=== PATIENT | female | born 1990 | race African-American/Black ===

== ENCOUNTER 2017-06-02 14:40 | Outpatient (CLI) | payer BC ==
--- NOTE | 2017-06-02 15:32 | RAD ---
LUMBAR SPINE FOUR VIEWS INCLUDING FLEXION AND EXTENSION: 06/02/17 HISTORY: Low back pain. FINDINGS/IMPRESSION: No fracture, subluxation or bony destruction seen. No change in alignment is seen on flexion or exten lissy. POS: [facility]
== END 2017-06-02 14:41 | disposition home or self-care (01) ==
LOC: SCSRAD 14:40
PROVIDERS: ATTEND Psychiatry & Neurology Neurology
DX: G43.019 Migraine without aura, intractable, without status migrainosus (principal)
CPT/HCPCS: 72120

== ENCOUNTER 2019-03-14 17:29 | Emergency (ER) | payer BC ==
[~2019-03-14 17:29] MED LIST: Gadobenate Dimeglumine 529 MG/1 ML (20ML VIAL) ONE
[2019-03-14 19:42] LABS: #Basophils 0.1 thou/uL (0.0-0.2); #Eosinphils 0.9 thou/uL (0.0-0.7); #Lymphocytes 3.3 thou/uL (1.20-3.40); #Monocytes 0.5 thou/uL (0.11-0.59); %Eosinophils 7.9 % (0.0-10.0); %Lymphocytes 30.5 % (21.0-51.0); %Monocytes 4.9 % (0.0-10.0); %Neutrophils 55.7 % (42.0-75.0); Hemoglobin 12.5 g/dL (12.0-16.0); Mean Corpuscular HGB CONC 31.5 g/dL (32.0-36.0); Mean Corpuscular Hemoglobin 28.3 pg (27.0-31.0); Mean Corpuscular Volume 89.8 fL (78.0-98.0); Mean Platelet Volume 10.8 fL (7.4-10.4); Platelet Count 253 thou/uL (130-400); RBC Distribution Width 12.1 % (11.5-14.5); Red Blood Cell (RBC) Count 4.43 mill/uL (4.20-5.40); White Blood Cell (WBC) Count 10.8 thou/uL (4.8-10.8)
[2019-03-14 19:49] LABS: BHCG - Serum Negative (NEGATIVE); Pregs Control Background? CLEAR/WHITE (CLR/WHITE); Pregs Control Bar Appear? YES (CONTROL BAR)
[2019-03-14 19:59] LABS: ALT (SGPT) 10 U/L (8-55); AST (SGOT) 12 U/L (5-34); Alkaline Phosphatase 47 U/L (40-110); Anion Gap 13 mmol/L (10-20); BUN (Urea Nitrogen) 12 mg/dL (7.0-18.7); Bilirubin, Total 0.2 mg/dL (0.2-1.2); Calc. Creatinine Clearance 0 mL/min (70-130); Calcium 9.4 mg/dL (7.8-10.44); Carbon Dioxide 27 mmol/L (22-29); Chloride 103 mmol/L (98-107); Estimated GFR-MDRD Greater than 90; Globulin 3.5 g/dL (2.4-3.5); Glucose 137 mg/dL (70-105); Protein, Total 7.5 g/dL (6.0-8.3); Sodium 139 mmol/L (136-145)
[2019-03-14] MEDS ORDERED: Metoclopramide HCl 10 MG/2 ML VIAL ONE (20:35)
[2019-03-14] MEDS ORDERED: diphenhydrAMINE 50 MG/ML VIAL ONE (20:35)
[2019-03-14] MEDS ORDERED: methylPREDNISolone Sod Succ/PF 125 MG/2 ML VIAL ONE (20:40)
[2019-03-14] MEDS ORDERED: methylPREDNISolone Sod Succ 40 MG VIAL ONE ×2 (20:42→20:47)
--- NOTE | 2019-03-15 07:46 | MRI ---
MRI Brain W WO Con: 03/14/2019 6:11 PM CLINICAL HISTORY: Papilledema, blurred vision. COMPARISON: None. FINDINGS: Extra axial spaces: Normal in size and morphology for the patient's age. Acute infarction: None. Ventricular system: Normal in size and morphology for the patient's age. Basal cisterns: Normal. Cerebral parenchyma: Multifocal parenchymal signal abnormalities are present bilaterally, predominant ly in a callosal/pericallosal distribution. Midline shift: None. Cerebellum: Normal. Brainstem: Normal. Paranasal sinuses:Scattered mucosal thickening. Intraaxial Enhancement: Focal enhancement adjacent to the temporal horn of the left lateral ventricle measures approximately 1 cm. IMPRESSION: Multifocal signal abnormalities of the bilateral cerebral hemispheres in a distribution favoring demy elinating process such as multiple sclerosis. There is a focus of enhancement involving the periventricular aspect of the left temporal lobe indicative of active demyelination. Recommend correl ation with clinical history. CSF analysis would also prove useful, as well as imaging follow-up Transcribed Date/Time: 03/15/2019 7:51 AM
== END 2019-03-14 22:36 | disposition home or self-care (01) ==
LOC: SCSER 17:29
DX: R51 Headache (principal)
CPT/HCPCS: 36415; 70553; 80053; 84703; 85025; 96365; 96368; 96375; A9577; J1200; J2765; J2920; J2930